=== PATIENT | female | born 1950 | race American Indian/Alaskan Native ===

== ENCOUNTER 2018-05-05 15:58 | Emergency (ER) | payer MEDICARE ==
[2018-05-05] MEDS ORDERED: ZOFRAN ODT PO ONE (16:32)
[2018-05-05] MEDS ORDERED: PERCOCET 5/325 PO ONE (16:32)
[2018-05-05] MEDS ORDERED: FLEXERIL PO ONE (16:32)
--- NOTE | 2018-05-05 16:35 | Emergency Department Report ---
ED Back Pain/Injury HPI - General Chief Complaint: Back Pain/Injury Stated Complaint: RT HIP PAIN Time Seen by Provider: 05/05/18 16:26 Source: EMS Limitations: No Limitations - History of Present Illness Initial Comments: 68-year-old female a past medical history of hypertension and arthritis presents complaining of lower back pain with spasm since this a.m. Pain is mostly in the right side and radiates to the right hip. Pain is moderate to severe in intensity, constant, worse with palpation and movement. No alleviating factors reported. Patient took Motrin and BC powder earlier without relief. Patient denies any recent or injury. Patient has a history of chronic back pain with intermittent spasms almost daily. She denies any previous injury, fracture, or back surgery. Today she had nausea and vomiting secondary to spasms and pain. She denies fever, hematuria, dysuria, abdominal pain, urinary incontinence, leg weakness or numbness. Patient is compliant with her blood pressure medication and typically takes it at night. PMD recently changed to Dr. Leilani Mak - Related Data Previous Rx's Medication Instructions Recorded Last Taken Type Cyclobenzaprine [Flexeril] 10 mg PO TID PRN #30 tablet 05/05/18 Unknown Rx HYDROcodone/APAP 5-325 [[place] 1 each PO Q6HR PRN #15 tablet 05/05/18 Unknown Rx 5/325] Ibuprofen [Motrin] 800 mg PO Q8HR PRN #30 tablet 05/05/18 Unknown Rx Allergies Allergy/AdvReac Type Severity Reaction Status Date / Time No Known Allergies Allergy Unverified 05/05/18 16:56 ED Review of Systems ROS: Stated complaint: RT HIP PAIN Other details as noted in HPI Comment: All other systems reviewed and negative ED Past Medical Hx - Medications Home Medications: Home Medications Medication Instructions Recorded Confirmed Last Taken Type Cyclobenzaprine [Flexeril] 10 mg PO TID PRN #30 tablet 05/05/18 Unknown Rx HYDROcodone/APAP 5-325 [[place]ume 1 each PO Q6HR PRN #15 tablet 05/05/18 Unknown Rx 5/325] Ibuprofen [Motrin] 800 mg PO Q8HR PRN #30 tablet 05/05/18 Unknown Rx ED Physical Exam - General Limitations: No Limitations - Other Other exam information: General: No limitations, patient is alert in no acute distress Head exam: Atraumatic, normocephalic Eyes exam: Normal appearance ENT: Moist mucous membrane Neck exam: Normal inspection, full range of motion Respiratory exam: Clear to auscultation bilateral, no wheezes, rales, crackles Cardiovascular: Normal rate and rhythm Abdomen: Soft, nondistended, and nontender, with normal bowel sounds, no rebound, or guarding Extremity: Full range of motion normal inspection no deformity Back: Normal Inspection, full range of motion, right-sided lumbar paraspinal muscle and right gluteal tenderness to palpation and movement. Neurologic: Alert, oriented x3, cranial nerves intact, no motor or sensory deficit Psychiatric: normal affect, normal mood Skin: Warm, dry, intact ED Course Vital Signs 05/05/18 05/05/18 05/05/18 16:51 18:07 19:14 Temperature 98.3 F 98.2 F Pulse Rate 76 76 77 Respiratory 18 18 Rate Blood Pressure 160/42 Blood Pressure 146/60 147/103 [Right] O2 Sat by Pulse 98 99 Oximetry ED Medical Decision Making - Lab Data Result diagrams: 05/05/18 16:59 05/05/18 16:59 Lab Results 05/05/18 05/05/18 05/05/18 Range/Units 16:59 16:59 19:11 WBC 6.7 (4.5-11.0) K/mm3 RBC 4.18 (3.65-5.03) M/mm3 Hgb 13.0 (10.1-14.3) gm/dl Hct 39.0 (30.3-42.9) % MCV 93 (79-97) fl MCH 31 (28-32) pg MCHC 33 (30-34) % RDW 15.2 (13.2-15.2) % Plt Count 170 (140-440) K/mm3 Lymph % (Auto) 22.2 (13.4-35.0) % [place] % (Auto) 6.8 (0.0-7.3) % Eos % (Auto) 0.9 (0.0-4.3) % Baso % (Auto) 0.6 (0.0-1.8) % Lymph # 1.5 (1.2-5.4) K/mm3 [place] # 0.5 (0.0-0.8) K/mm3 Eos # 0.1 (0.0-0.4) K/mm3 Baso # 0.0 (0.0-0.1) K/mm3 Seg Neutrophils % 69.5 (40.0-70.0) % Seg Neutrophils # 4.7 (1.8-7.7) K/mm3 Sodium 140 (137-145) mmol/L Potassium 3.6 (3.6-5.0) mmol/L Chloride 102.8 (98-107) mmol/L Carbon Dioxide 22 (22-30) mmol/L Anion Gap 19 mmol/L BUN 17 (7-17) mg/dL Creatinine 0.8 (0.7-1.2) mg/dL Estimated GFR > 60 ml/min BUN/Creatinine Ratio 21 % Glucose 119 H (65-100) mg/dL Calcium 8.8 (8.4-10.2) mg/dL Urine Color Yellow (Yellow) Urine Turbidity Clear (Clear) Urine pH 5.0 (5.0-7.0) Ur Specific [place] 1.023 (1.003-1.030) Urine Protein <15 mg/dl (Negative) mg/dL Urine Glucose (UA) Neg (Negative) mg/dL Urine Ketones Neg (Negative) mg/dL Urine Blood Neg (Negative) Urine Nitrite Neg (Negative) Urine Bilirubin Neg (Negative) Urine Urobilinogen 4.0 (<2.0) mg/dL Ur Leukocyte Esterase Sm (Negative) Urine WBC (Auto) 4.0 (0.0-6.0) /HPF Urine RBC (Auto) 3.0 (0.0-6.0) /HPF U Epithel Cells (Auto) 6.0 (0-13.0) /HPF Hyaline Casts 3 /LPF Urine Mucus 2+ /HPF - Radiology Data Radiology results: report reviewed PROCEDURE: XR SPINE LUMBOSACRAL 2-3V TECHNIQUE: Lumbar spine 3 views HISTORY: lower back pain COMPARISONS: FINDINGS: There is grade 1 anterolisthesis of L5 relative to S1 with disc space narrowing and marginal osteophyte. Remaining levels demonstrate normal height and alignment. Transverse and spinous processes are intact. IMPRESSION: Grade 1 spondylolisthesis at L5-S1 with degenerative disc changes. - Medical Decision Making Patient received pain medication the ED and feels much better. Pain is unable to move ambulate without difficulty. Labs and imaging studies do not reveal any acute abnormality. Symptomatic management provided outpatient follow-up encouraged. - Differential Diagnosis arthritis, pathological fracture, herniated disc, UTI,, muscle spasm Critical Care Time: No Critical care attestation.: If time is entered above; I have spent that time in minutes in the direct care of this critically ill patient, excluding procedure time. ED Disposition Clinical Impression: Low back strain, Arthritis, low back Disposition: TO HOME OR SELFCARE Is pt being admited?: No Does the pt Need Aspirin: No Condition: Stable Instructions: Low Back Strain (ED), Degenerative Disc Disease (ED) Additional Instructions: Take the medication as prescribed. Follow up with your doctor or the clinic/doctor provided. Return if symptoms worsen as indicated by your discharge instructions Prescriptions: Cyclobenzaprine [Flexeril] 10 mg PO TID PRN #30 tablet PRN Reason: Muscle Spasm Ibuprofen [Motrin] 800 mg PO Q8HR PRN #30 tablet PRN Reason: Pain, Moderate (4-6) HYDROcodone/APAP 5-325 [[place] 5/325] 1 each PO Q6HR PRN #15 tablet PRN Reason: Pain Referrals: LEILANI MAK JR, MD [Referring] - 3-5 Days Time of Disposition: 20:29
[2018-05-05 17:17] LABS: Basophils % (Auto) 0.6 % (0.0-1.8); Eosinophils # (Auto) 0.1 K/mm3 (0.0-0.4); Eosinophils % (Auto) 0.9 % (0.0-4.3); Lymphocytes # (Auto) 1.5 K/mm3 (1.2-5.4); Lymphocytes % (Auto) 22.2 % (13.4-35.0); Mean Corpuscular HGB Conc 33 % (30-34); Mean Corpuscular Volume 93 fl (79-97); Monocytes # (Auto) 0.5 K/mm3 (0.0-0.8); Monocytes % (Auto) 6.8 % (0.0-7.3); Platelet Count 170 K/mm3 (140-440); Red Blood Count 4.18 M/mm3 (3.65-5.03); Red Cell Distribution Width 15.2 % (13.2-15.2)
[2018-05-05 17:24] LABS: BUN/Creatinine Ratio 21; Blood Urea Nitrogen 17 mg/dL (7-17); Calcium 8.8 mg/dL (8.4-10.2); Hemolysis Index 14
--- NOTE | 2018-05-05 18:36 | XRay Report ---
PROCEDURE: XR SPINE LUMBOSACRAL 2-3V TECHNIQUE: Lumbar spine 3 views HISTORY: lower back pain COMPARISONS: FINDINGS: There is grade 1 anterolisthesis of L5 relative to S1 with disc space narrowing and marginal osteophy te. Remaining levels demonstrate normal height and alignment. Transverse and spinous processes are intact . IMPRESSION: Grade 1 spondylolisthesis at L5-S1 with degenerative disc changes. This document is electronically signed by Say Cain MD., May 05 2018 06:34:39 PM ET
[2018-05-05 19:14] VITALS: BP 147/103
[2018-05-05 20:17] LABS: Bilirubin,Urine NEG (Negative); Blood,Urine NEG (Negative); Color,Urine Yellow (Yellow); Hyaline Casts,Urine 3 /LPF; Mucus,Urine 2+ /HPF; Protein,Urine <15 mg/dL mg/dL (Negative)
== END 2018-05-05 20:38 | disposition home or self-care (01) ==
LOC: ED 15:58
DX: M46.97 Unspecified inflammatory spondylopathy, lumbosacral region (principal)
CPT/HCPCS: 36415; 72100; 80048; 81001; 85025; Q0162